=== PATIENT | male | born 1965 | race Caucasian/White ===

== ENCOUNTER 2022-12-12 09:51 | Emergency (ER) | payer OTHER ==
[~2022-12-12] VITALS: Ht 170.2 cm; Wt 81.2 kg
[2022-12-12 09:57] VITALS: BP 120/75
--- NOTE | 2022-12-12 10:18 | NUR ---
57 Y/O M BIB SELF C/O SHORTNESS OF BREATH, BARKING COUGH X 2 DAYS, CHILLS, SORE THROTH, HEADACHE AND RUNNING NOSE. PT C/O OF THROTH AND UPPER CHEST PAIN 02/21. WORSE WTIH COUGH. NKA PMH: DM TYPE ONE, HTN, RETINOPATHY
[2022-12-12] MEDS ORDERED: ALBUTEROL HFA MDI 90 MCG/ACTUATION 8 GM INH ONE (10:50)
--- NOTE | 2022-12-12 10:56 | NUR ---
X-RAY AT BEDSIDE.
--- NOTE | 2022-12-12 11:07 | NUR ---
RT AT BEDSIDE.
[2022-12-12] MEDS ORDERED: PROM118S5 PO (11:37)
[2022-12-12] MEDS ORDERED: ALBU0.0912 IH (11:37)
[2022-12-12] MEDS ORDERED: LANC1COM6 MC (11:37)
[2022-12-12 11:52] VITALS: BP 127/74
--- NOTE | 2022-12-12 11:54 | NUR ---
Patient discharged with v/s stable. Written and verbal after care instructions given and explained. Patient alert, oriented and verbalized understanding of instructions. Ambulatory with steady gait. All questions addressed prior to discharge. ID band removed. Patient advised to follow up with PMD. Rx of ALBUTEROL SULFATE, LANCETS/BLOOD GLUCOSE STRIPS, ROMETHAZINE/DEXTROMETHORPHAN given. Opportunity to ask questions provided and answered.
--- NOTE | 2022-12-12 11:55 | NUR ---
The patient's care was reviewed and supervised by Michelle Day, RN, RN.
== END 2022-12-12 11:52 | disposition home or self-care (01) ==
LOC: MED 09:51
DX: B34.9 Viral infection, unspecified (principal); Z20.822 Contact with and (suspected) exposure to COVID-19; J98.01 Acute bronchospasm; E11.9 Type 2 diabetes mellitus without complications; I10 Essential (primary) hypertension; Z79.4 Long term (current) use of insulin; Z79.899 Other long term (current) drug therapy; E78.00 Pure hypercholesterolemia, unspecified
CPT/HCPCS: 71045; 94664; 99284